=== PATIENT | female | born 1975 | race Caucasian/White ===

== ENCOUNTER → 2023-12-23 14:27 | Outpatient (REF) | payer BC, SELFPAY | LOC: HWRAD 14:27 | PROVIDERS: ATTENDING PHYSICIAN Obstetrics & Gynecology Gynecologic Oncology; FAMILY PHYSICIAN Internal Medicine Cardiovascular Disease | DX: C57.02 Malignant neoplasm of left fallopian tube (principal); Z71.9 Counseling, unspecified; C78.6 Secondary malignant neoplasm of retroperitoneum and peritoneum; C18.7 Malignant neoplasm of sigmoid colon; D69.9 Hemorrhagic condition, unspecified | CPT/HCPCS: 71260; 74177; Q9967 ==

== ENCOUNTER → 2023-12-25 13:06 | Outpatient (REF) | payer BC, SELFPAY ==
[2023-12-25 13:24] VITALS: BP 155/96; BP_SYST 73
[2023-12-25] MEDS: ANCEF 10 IV (13:49)
[2023-12-25 15:10] VITALS: BP 98/57; BP_SYST 78
[2023-12-25 15:16] VITALS: BP 98/57; BP_SYST 78
[2023-12-25 15:23] VITALS: BP 101/69; BP_SYST 67
== END ==
LOC: RADI 13:06
PROVIDERS: ATTENDING PHYSICIAN Obstetrics & Gynecology Gynecologic Oncology
DX: C56.9 Malignant neoplasm of unspecified ovary (principal)
CPT/HCPCS: 36561; 76937; 77001; 99152; 99153; C1788

== ENCOUNTER 2024-01-20 15:51 | Outpatient (RCR) | payer BC, SELFPAY ==
[2024-01-20 13:03] LABS: ALT (SGPT) 18 U/L (0-35); AST (SGOT) 21 U/L (14-36); Albumin 4.2 g/dl (3.5-5.0); Alkaline Phosphatase 60 U/L (38-126); Blood Urea Nitrogen 10 mg/dl (7-17); Calcium 9.6 mg/dl (8.4-10.2); Carbon Dioxide 26 mmol/L (22-30); Chloride 104 mmol/L (98-107); Glucose 89 mg/dl (70-99); Potassium 4.5 mmol/L (3.5-5.1); Sodium 137 mmol/L (135-145); Total Bilirubin 0.3 mg/dl (0.2-1.3); Total Protein 6.8 g/dl (6.3-8.2); eGFR > 60.00
== END 2024-02-18 23:59 | disposition home or self-care (01) ==
LOC: OID 15:51
PROVIDERS: ATTENDING PHYSICIAN Obstetrics & Gynecology Gynecologic Oncology
DX: C57.02 Malignant neoplasm of left fallopian tube (principal)
CPT/HCPCS: 80053

== ENCOUNTER → 2024-02-24 12:22 | Outpatient (REF) | payer BC, SELFPAY | LOC: HWRAD 12:22 | PROVIDERS: ATTENDING PHYSICIAN Obstetrics & Gynecology Gynecologic Oncology | DX: C57.02 Malignant neoplasm of left fallopian tube (principal); Z71.9 Counseling, unspecified | CPT/HCPCS: 71260; 74177; Q9967 ==

== ENCOUNTER → 2024-05-07 09:35 | Outpatient (REF) | payer BC, SELFPAY ==
[2024-05-07 09:49] VITALS: BP 115/64; BP_SYST 82
== END ==
LOC: RADI 09:35
PROVIDERS: ATTENDING PHYSICIAN Obstetrics & Gynecology Gynecologic Oncology
DX: Z45.2 Encounter for adjustment and management of vascular access device (principal); Z85.43 Personal history of malignant neoplasm of ovary
CPT/HCPCS: 36590; 77001

== ENCOUNTER → 2024-05-25 11:24 | Outpatient (REF) | payer BC, SELFPAY | LOC: HWRAD 11:24 | PROVIDERS: ATTENDING PHYSICIAN Obstetrics & Gynecology Gynecologic Oncology | DX: C57.02 Malignant neoplasm of left fallopian tube (principal); C78.6 Secondary malignant neoplasm of retroperitoneum and peritoneum; C18.7 Malignant neoplasm of sigmoid colon | CPT/HCPCS: 71260; 74177; Q9967 ==

== ENCOUNTER → 2025-05-17 15:36 | Outpatient (REF) | payer BC, SELFPAY | LOC: RAD 15:36 | PROVIDERS: ATTENDING PHYSICIAN Obstetrics & Gynecology Gynecologic Oncology; FAMILY PHYSICIAN Internal Medicine | DX: C57.02 Malignant neoplasm of left fallopian tube (principal); Z71.9 Counseling, unspecified; C78.6 Secondary malignant neoplasm of retroperitoneum and peritoneum; C18.7 Malignant neoplasm of sigmoid colon | CPT/HCPCS: 71260; 74177; Q9967 ==

== ENCOUNTER → 2025-07-22 16:56 | Outpatient (REF) | payer BC, SELFPAY | LOC: RAD 16:56 | PROVIDERS: ATTENDING PHYSICIAN Physician Assistant Surgical; FAMILY PHYSICIAN Internal Medicine; OTHER PHYSICIAN Obstetrics & Gynecology Gynecologic Oncology | DX: C57.02 Malignant neoplasm of left fallopian tube (principal); Z71.9 Counseling, unspecified; C78.6 Secondary malignant neoplasm of retroperitoneum and peritoneum; C18.7 Malignant neoplasm of sigmoid colon; D69.9 Hemorrhagic condition, unspecified; Z15.01 Genetic susceptibility to malignant neoplasm of breast; Z15.02 Genetic susceptibility to malignant neoplasm of ovary; R22.40 Localized swelling, mass and lump, unspecified lower limb; Z12.31 Encounter for screening mammogram for malignant neoplasm of breast | CPT/HCPCS: 93970 ==